=== PATIENT | female | born 1950 | race African-American/Black ===

== ENCOUNTER 2025-01-14 19:38 | Inpatient (IN) | payer OTHER ==
[~2025-01-14] VITALS: Ht 170.2 cm; Wt 111.6 kg
[2025-01-14] MEDS: MORPHINE SULFATE 4 MG/ML INJ (FOR IV/IM USE) IV ONE (23:11)
[2025-01-15] MEDS: MORPHINE SULFATE 4 MG/ML INJ (FOR IV/IM USE) IV STA (02:39)
[2025-01-15] MEDS: DIPHENHYDRAMINE 50MG/ML VIAL IV ONE (03:35)
[2025-01-15 05:10] LABS: CHLORIDE 106 mEq/L (98-107); POTASSIUM 3.7 mEq/L (3.5-5.1); SODIUM 145 mEq/L (136-145)
[2025-01-15 05:11] LABS: CALCIUM 9.7 mg/dL (8.7-10.4); CARBON DIOXIDE 29 mEq/L (21-32)
[2025-01-15 05:16] LABS: CREATININE 0.8 mg/dL (0.6-1.0); GLUCOSE 92 mg/dL (70-105); UREA NITROGEN BLOOD 16 mg/dL (9-23)
[2025-01-15 07:34] LABS: INR 1.1; PROTHROMBIN TIME 11.6 sec (9.6-11.0)
[2025-01-15 07:36] LABS: BASOPHILS % 0.3 % (0.0-2.0); EOSINOPHILS % 3.3 % (0.0-5.0); HEMATOCRIT. 38.2 % (36.0-48.0); HEMOGLOBIN. 11.9 g/dL (12.0-16.0); LYMPHOCYTES % 39.1 % (20.0-50.0); MEAN CORPUSCULAR HEMOGLOBIN 26.1 pg (28.0-32.0); MEAN CORPUSCULAR HGB CONC 31.1 g/dL (31.0-37.0); MEAN CORPUSCULAR VOLUME 83.9 fL (81.0-99.0); MONOCYTES % 13.9 % (2.0-8.0); NEUTROPHILS % 43.4 % (40.0-76.0); PLATELET 223 x1000/uL (130-400); RED BLOOD CELL COUNT 4.56 mill/uL (4.2-5.4); RED CELL DISTRIBUTION WIDTH 17.6 % (11.6-14.6); WHITE BLOOD COUNT 5.4 x1000/uL (4.5-11.0)
[2025-01-15 09:00] VITALS: BP 169/74; PULSE 98; RESP 18; TEMP 36.5
[2025-01-15 12:00] VITALS: BP 147/62; PULSE 61; RESP 17; TEMP 36.5; O2SAT 100
[2025-01-15] MEDS ORDERED: DEXTROSE 50% WATER 50ML SYRINGE IV PRN (14:00)
[2025-01-15] MEDS ORDERED: TRAMADOL 50MG TABLET PO PRN (14:00)
[2025-01-15] MEDS ORDERED: IPRATROPIUM/ALBUTEROL 0.5-3(2.5)MG/3ML NEB HHN PRN (14:00)
[2025-01-15] MEDS ORDERED: DOCUSATE SODIUM 100MG CAPSULE PO PRN (14:00)
[2025-01-15] MEDS ORDERED: ONDANSETRON HCL 4MG/2ML INJ IV PRN (14:00)
[2025-01-15] MEDS ORDERED: ACETAMINOPHEN 325MG TABLET PO PRN (14:00)
[2025-01-15] MEDS: HYDRALAZINE HCL 25MG TABLET PO SCH (15:00)
[2025-01-15] MEDS: CLONIDINE 0.1MG TABLET PO PRN (15:09)
[2025-01-15 16:00] VITALS: BP 147/65; PULSE 59; RESP 18; TEMP 36.5; O2SAT 98
[2025-01-15] MEDS: BLOOD SUGAR DIAGNOSTIC STRIP TEST SCH (17:20)
[2025-01-15] MEDS: INSULIN LISPRO 100 UNITS/ML SUBCUT SCH (17:50)
[2025-01-15 20:00] VITALS: BP 154/65; PULSE 77; RESP 19; TEMP 36.5; O2SAT 100
[2025-01-15] MEDS ORDERED: NALOXONE HCL 0.4MG/ML VIAL IV PRN (23:00)
[2025-01-16] VITALS: BP 167/78; PULSE 69; RESP 18; TEMP 36.2; O2SAT 100
[2025-01-16] MEDS: OXYCODONE HCL/ACETAMINOPHEN 5/325MG TABLET PO PRN
[2025-01-16 01:56] LABS: *AMPHETAMINES SCREEN URINE NEGATIVE (NEGATIVE); *BARBITURATES SCREEN URINE NEGATIVE (NEGATIVE); *BENZODIAZEPINES SCREEN URINE NEGATIVE (NEGATIVE); *COCAINE SCREEN URINE NEGATIVE (NEGATIVE); CANNABINOID URINE SCREEN NEGATIVE (NEGATIVE); ECSTASY MDMA SCREEN URINE NEGATIVE (NEGATIVE); METHADONE URINE SCREEN NEGATIVE (NEGATIVE); OPIATES URINE SCREEN PRESUMPTIVE POSITIVE (NEGATIVE); PHENCYCLIDINE URINE SCREEN NEGATIVE (NEGATIVE)
[2025-01-16 02:43] LABS: CLARITY URINE CLEAR (CLEAR); COLOR URINE YELLOW (YELLOW); GLUCOSE URINE NEGATIVE (NEGATIVE); KETONES URINE 1+ (NEGATIVE); LEUKOCYTE ESTERASE URINE TRACE (NEGATIVE); NITRITE URINE NEGATIVE (NEGATIVE); OCCULT BLOOD URINE NEGATIVE (NEGATIVE); PH URINE 6.5 (4.5-8.0); PROTEIN URINE NEGATIVE (NEGATIVE); SPECIFIC GRAVITY URINE 1.015 (1.005-1.030); UROBILINOGEN URINE 0.2 E.U./dL (0.2-1.0)
[2025-01-16 04:00] VITALS: BP 158/71; PULSE 74; RESP 18; TEMP 36.6; O2SAT 100
[2025-01-16 07:14] LABS: SQUAMOUS EPITHELIAL CELL URINE FEW /lpf (RARE/1+)
[2025-01-16 07:15] LABS: RBC URINE NONE SEEN /hpf (0-2); WBC URINE 0-2 /hpf (0-2)
[2025-01-16 07:21] LABS: BACTERIA URINE TRACE
[2025-01-16 08:00] VITALS: BP 174/93; PULSE 81; RESP 19; TEMP 36.6; O2SAT 100
[2025-01-16] MEDS: CEFTRIAXONE 1GM/50ML 50 ML IV SCH (11:00)
[2025-01-16 12:00] VITALS: BP 172/72; PULSE 80; RESP 19; TEMP 36.2; O2SAT 99
[2025-01-16] MEDS: HYDRALAZINE HCL 50MG TABLET PO SCH (14:00)
[2025-01-16 16:00] VITALS: BP 130/56; PULSE 71; RESP 20; TEMP 36.2; O2SAT 98
[2025-01-16 20:00] VITALS: BP 120/52; PULSE 68; RESP 19; TEMP 37; O2SAT 96
[2025-01-17 04:00] VITALS: BP 144/65; PULSE 64; RESP 19; TEMP 36.9; O2SAT 98
[2025-01-17] MEDS: ACETAMINOPHEN 325MG TABLET PO PRN (06:41)
[2025-01-17 08:00] VITALS: BP 145/63; PULSE 72; RESP 17; TEMP 36.3; O2SAT 97
[2025-01-17 16:00] VITALS: BP 179/83; PULSE 70; RESP 14; TEMP 36.4; O2SAT 100
[2025-01-17 20:00] VITALS: BP 157/60; PULSE 72; RESP 19; TEMP 37.4; O2SAT 95
[2025-01-17] MEDS: PREGABALIN 75MG CAPSULE PO SCH (22:55)
[2025-01-18] VITALS (8 sets, daily range): BP systolic 123–171; BP diastolic 58–79; PULSE 64–84; RESP 19–20; TEMP 36.1–37; O2SAT 95–100
[2025-01-18] MEDS: LOSARTAN 50 MG TABLET PO SCH (09:49)
[2025-01-18] MEDS: METOPROLOL TARTRATE 25MG TABLET PO SCH (09:49)
[2025-01-18] MEDS: BUPROPION HCL 150MG SR TABLET PO SCH (11:00)
[2025-01-18] MEDS: BRIMONIDINE 0.2% OPHTH DROPS 5ML BOTHEYE SCH (16:32)
[2025-01-18] MEDS: RIVAROXABAN 20 MG TABLET PO SCH (16:32)
[2025-01-18] MEDS: LATANOPROST 0.005% OPHTH DROPS 2.5ML BOTHEYE SCH (21:00)
[2025-01-18] MEDS: TIMOLOL MALEATE 0.5% OPHTH DROPS 5ML EACHEYE SCH (21:00)
[2025-01-18] MEDS: ATORVASTATIN CALCIUM 20MG TABLET PO SCH (21:17)
[2025-01-19] MEDS ORDERED: FUROSEMIDE 40MG TABLET PO SCH (09:00)
== END 2025-01-18 21:53 | disposition home or self-care (01) | DRG 556 ==
LOC: ER 19:38 → 6EST 01-15 03:27 → EDBEDREQ 01-15 03:33 → EDBEDREQTM 01-15 03:33 → EDBEDREQ 01-15 05:31
PROVIDERS: ADMIT Internal Medicine; ATTEND Internal Medicine
DX: M25.551 Pain in right hip (principal); N39.0 Urinary tract infection, site not specified; I10 Essential (primary) hypertension; M25.511 Pain in right shoulder; E11.9 Type 2 diabetes mellitus without complications; E78.5 Hyperlipidemia, unspecified; Z86.718 Personal history of other venous thrombosis and embolism; Z88.6 Allergy status to analgesic agent; Z90.710 Acquired absence of both cervix and uterus; Z88.8 Allergy status to other drugs, medicaments and biological substances
CPT/HCPCS: 36415; 73030; 73502; 73562; 80048; 80305; 81003; 82962; 83036; 85025; 86850; 86900; 97161; 99285; A4606; J0696; J1200; J2270